=== PATIENT | female | born 1985 | race Caucasian/White ===

== ENCOUNTER → 2021-08-02 | Outpatient (CLI) | payer OTHER | LOC: WSo 13:58 | PROVIDERS: ATTEND Obstetrics & Gynecology | DX: Z53.9 Procedure and treatment not carried out, unspecified reason (principal) ==

== ENCOUNTER 2022-09-25 21:53 | Outpatient (CLI) | payer MEDICAID ==
[~2022-09-25] VITALS: Ht 154.9 cm; Wt 61.0 kg
[2022-09-25 22:05] VITALS: BP 115/71
[2022-09-25] MEDS ORDERED: PREN1TAB79 PO (22:29)
[2022-09-25] MEDS ORDERED: ASCO500T71 PO (22:29)
[2022-09-25] MEDS ORDERED: FAMO40TA6 PO (22:29)
--- NOTE | 2022-09-26 08:11 | Physician Query-Final Dx ---
RENEE,09/26/22 0811: Clinic Account Progress/Dx Physician Query: Please give diagnosis Please include # weeks gestation Date of Service Sep 25, 2022 at 21:53 RENNY LUONG DO 09/27/22 0836: Clinic Account Progress/Dx DIAGNOSIS: Diagnosis 23 week GA decreased movement with reasurring FHT ,JulSep 26, 2022 08:11 RENNY LUONG DO Sep 27, 2022 08:36
== END 2022-09-26 00:43 | disposition home or self-care (01) ==
LOC: WSo 21:53 → LDRP 21:53 → WS 09-26 00:42 → WSo 09-26 00:43
PROVIDERS: ATTEND Family Medicine
DX: O36.8120 Decreased fetal movements, second trimester, not applicable or unspecified (principal); Z3A.23 23 weeks gestation of pregnancy
CPT/HCPCS: 99212

== ENCOUNTER 2023-01-08 19:55 | Outpatient (CLI) | payer MEDICAID ==
[~2023-01-08] VITALS: Ht 154.9 cm; Wt 66.0 kg
[~2023-01-08 19:55] MED LIST: ASCO500T71 PO; FAMO40TA6 PO; PREN1TAB79 PO
[2023-01-08 20:15] VITALS: BP 129/79
[2023-01-08 20:23] LABS: BILIRUBIN,URINE NEGATIVE (NEGATIVE); CLARITY,URINE CLEAR; COLOR,URINE YELLOW; GLUCOSE, URINE (UA) NEGATIVE (NEGATIVE); KETONES,URINE NEGATIVE (NEGATIVE); LEUKOCYTE ESTERASE ,URINE NEGATIVE (NEGATIVE); NITRITE,URINE NEGATIVE (NEGATIVE); PROTEIN,URINE NEGATIVE (NEGATIVE)
[2023-01-08 20:45] LABS: BACTERIA,URINE NEGATIVE /HPF
[2023-01-08 20:50] VITALS: BP 114/72
--- NOTE | 2023-01-09 08:31 | Physician Query-Final Dx ---
,01/09/23 0831: Clinic Account Progress/Dx Physician Query: Please give diagnosis Please include # weeks gestation Date of Service Jan 08, 2023 at 19:55 MINISTERIO DAVIDSON MD 01/25/23 2140: Clinic Account Progress/Dx DIAGNOSIS: Diagnosis 1. Intrauterine in third trimester nonlabor 2. Pelvic pressurereassuring RENEE,JulJan 09, 2023 08:31 MINISTERIO DAVIDSON MD Jan 25, 2023 21:40
[2023-01-22] MEDS ORDERED: DOCU100C37 PO (07:47)
[2023-01-22] MEDS ORDERED: FERR325T24 PO (07:47)
[2023-01-22] MEDS ORDERED: IBUP-844 PO (07:47)
== END 2023-01-08 21:23 | disposition home or self-care (01) ==
LOC: WSo 19:55 → LDRP 19:56 → WSo 21:23
PROVIDERS: ATTEND Family Medicine
DX: O62.9 Abnormality of forces of labor, unspecified (principal); Z3A.38 38 weeks gestation of pregnancy
CPT/HCPCS: 81000; 99213

== ENCOUNTER 2023-01-19 18:27 | Inpatient (IN) | payer MEDICAID ==
[~2023-01-19] VITALS: Ht 154.9 cm; Wt 66.9 kg
[2023-01-19 19:00] VITALS: BP 118/79
[2023-01-19] MEDS ORDERED: AMPICILLIN FOR IV USE 2,000 MG in NS (IVPB) 50 ML IV SCH (19:41)
[2023-01-19 19:45] VITALS: BP 118/79
[2023-01-19] MEDS ORDERED: MINERAL OIL 30 ML UDC TOP PRN (19:45)
[2023-01-19 20:06] LABS: BILIRUBIN,URINE NEGATIVE (NEGATIVE); CLARITY,URINE CLEAR; COLOR,URINE YELLOW; GLUCOSE, URINE (UA) NEGATIVE (NEGATIVE); KETONES,URINE NEGATIVE (NEGATIVE); LEUKOCYTE ESTERASE ,URINE NEGATIVE (NEGATIVE); NITRITE,URINE NEGATIVE (NEGATIVE); PH,URINE 6.5 (5-9); PROTEIN,URINE NEGATIVE (NEGATIVE)
[2023-01-19 20:21] LABS: BASOPHILS % (AUTO) 0 % (0-10); EOSINOPHILS # (AUTO) 0.1 10^3/uL (0.0-0.3); EOSINOPHILS % (AUTO) 2 % (0-10); HEMATOCRIT 36 % (35-52); HEMOGLOBIN 12.5 g/dL (11.5-16.0); LYMPHOCYTES # (AUTO) 2.3 10^3/uL (1.0-4.0); LYMPHOCYTES % (AUTO) 31 % (12-44); MEAN CORPUSCULAR HEMOGLOBIN 32 pg (25-34); MEAN CORPUSCULAR HGB CONC 35 g/dL (32-36); MEAN CORPUSCULAR VOLUME 89 fL (80-99); MEAN PLATELET VOLUME 11.1 fL (9.0-12.2); MONOCYTES # (AUTO) 0.6 10^3/uL (0.0-1.0); MONOCYTES % (AUTO) 8 % (0-12); NEUTROPHILS # (AUTO) 4.4 10^3/uL (1.8-7.8); NEUTROPHILS % (AUTO) 59 % (42-75); PLATELET COUNT 172 10^3/uL (130-400); WHITE BLOOD COUNT 7.5 10^3/uL (4.3-11.0)
[2023-01-19 20:29] LABS: BACTERIA,URINE NEGATIVE /HPF
[2023-01-19] MEDS: LACTATED RINGERS 1,000 ML IV SCH (20:38)
[2023-01-19] MEDS: D5 LR IV SOLUTION 1,000 ML IV SCH (20:38)
[2023-01-19] MEDS ORDERED: CATHETER FLUSH 10 ML SYR IV SCH (22:00)
[2023-01-19 23:30] VITALS: BP 119/78
[2023-01-20] VITALS (54 sets, daily range): BP systolic 98–141; BP diastolic 55–86
[2023-01-20] MEDS: AMPICILLIN FOR IV USE 1,000 MG in NS (IVPB) 50 ML IV SCH ×5 (00:54→16:37)
[2023-01-20] MEDS ORDERED: ACETAMINOPHEN 500 MG TAB (TYLENOL) ONE ×2 (02:30→20:58)
[2023-01-20] MEDS ORDERED: ACETAMINOPHEN 500 MG TAB (TYLENOL) PO ONE (02:32)
[2023-01-20] MEDS: D5 LR IV SOLUTION 1,000 ML IV SCH ×2 (06:53→15:58)
[2023-01-20] MEDS ORDERED: fentaNYL 2 mcg/ml BUPIVA 0.125 100 ML ONE (08:15)
[2023-01-20] MEDS: LACTATED RINGERS 1,000 ML IV SCH (08:20)
[2023-01-20] MEDS ORDERED: ONDANSETRON 4 MG/2 ML (SDV) Z0FRAN ONE (08:21)
[2023-01-20] MEDS ORDERED: ONDANSETRON 4 MG/2 ML (SDV) Z0FRAN IVP PRN (08:30)
[2023-01-20] MEDS ORDERED: fentaNYL INJ 100 MCG/2 ML AMP ONE (08:45)
[2023-01-20] MEDS ORDERED: BUPIVACAINE 0.25% 10 ML (SENSORCAINE) VIAL ONE (08:45)
[2023-01-20] MEDS: fentaNYL 2 mcg/ml BUPIVA 0.125 100 ML EPI SCH ×2 (09:12→16:37)
[2023-01-20] MEDS ORDERED: LACTATED RINGERS 1,000 ML IV SCH (09:30)
[2023-01-20] MEDS ORDERED: diphenhydrAMINE 50 MG/ML INJ (BENADRYL) IV PRN (09:30)
[2023-01-20] MEDS ORDERED: ONDANSETRON 4 MG/2 ML (SDV) Z0FRAN IV PRN (09:30)
[2023-01-20] MEDS ORDERED: NALOXONE 0.4 MG/ML 1 ML (NARCAN) VIAL IV PRN (09:30)
[2023-01-20] MEDS ORDERED: OXYTOCIN PRE-MIX DRIP 500 ML IV SCH (10:15)
--- NOTE | 2023-01-20 13:19 | History & Physical-OB ---
OB - Chief Complaint & HPI Date/Time Date of Admission: Date of Admission: Jan 19, 2023 at 18:27 Date seen by a Provider: Jan 20, 2023 Time Seen by a Provider: 08:00 Chief Complaint/History OB-Reason for Admission/Chief: Induction of Labor Hx : 1 Hx Para: 0 Expected Date of Delivery: Jan 19, 2023 Gestational Age in Weeks: 40 Gestational Age in Days: 1 History of Labs A+, Ab neg, Rub Imm HIV/RPR/HepB/C NR Normal 1 hr GTT GBS + Allergies and Home Medications Allergies Coded Allergies: No Known Drug Allergies (Unverified , 01/08/23) Patient Home Medication List Home Medication List Reviewed: Yes Ascorbic Acid (Vitamin C) Unknown Strength Tab.chew, Unknown Dose PO, (Reported) Entered as Reported by: KAM SAMS on 09/25/222228 Famotidine (Famotidine) 40 Mg Tablet, 40 MG PO DAILY, (Reported) Entered as Reported by: KAM SAMS on 09/25/222228 Vit W-Ca,Fe,FA(<1 mg) ( Vitamins) 27 Mg Iron-800 Mcg Tablet, 1 EACH PO DAILY, (Reported) Entered as Reported by: KAM SAMS on 09/25/222228 OB - History Hx of Present Care: Yes Ultrasounds: Normal mid trimester US Obstetrical Complications: None Medical Complications: None, Other (IVF) Obstetrical History Hx : 1 Patient Past Medical History None Social History/Family History Alcohol Use: Denies Use Smoking Cessation: Never smoker 2nd Hand Smoke Exposure: No Immunizations Influenza Vaccine Up-to-Date: No; Not Current Rubella: immune RPR/VDRL: Negative GBS Status: Positive HBsAG: Negative OB - Admission Exam Physical Exam Vitals: Vital Signs 01/20/23 01/20/23 10:00 11:00 Temp 36.1 Pulse 59 Resp 18 B/P (MAP) 101/65 (77) Pulse Ox 93 O2 Delivery Room Air HEENT: NCAT Heart: Rhythm Normal Lungs: Clear Abdomen: Gravid Extremities: Normal Reflexes: Normal Cervical Dilatation: 2cm Effacement: 50% Station: -2 Membranes: Intact Heart Rate: 150's Accelerations: Accelerations Present Decelerations: No Decelerations Short Term Variability: Present Fci Variability: Average (6-25) Contractions on Admission: < 5 Minutes Apart Intensity: Moderate Miller Scoring Tool (Modified) Dilation (cm): 1-2cm (1) Effacement (%): 51-79% (2) Descent/Station: -2 (1) Cervix Consistency: Medium(1) Cervix Position: Middle/Mid-Position (1) Subtract 1 point for: Nulliparity (-1) Labs Laboratory Tests Test 01/19/23 18:50 01/19/23 20:00 Range/Units Urine Color YELLOW Urine Clarity CLEAR Urine pH 6.5 5-9 Urine Specific [place] 1.015 L 1.016-1.022 Urine Protein NEGATIVE NEGATIVE Urine Glucose (UA) NEGATIVE NEGATIVE Urine Ketones NEGATIVE NEGATIVE Urine Nitrite NEGATIVE NEGATIVE Urine Bilirubin NEGATIVE NEGATIVE Urine Urobilinogen 0.2 < = 1.0 MG/DL Urine Leukocyte Esterase NEGATIVE NEGATIVE Urine RBC (Auto) NEGATIVE NEGATIVE Urine RBC NONE /HPF Urine WBC NONE /HPF Urine Crystals NONE /LPF Urine Bacteria NEGATIVE /HPF Urine Casts NONE /LPF Urine Mucus NEGATIVE /LPF Urine Culture Indicated NO White Blood Count 7.5 4.3-11.0 10^3/uL Red Blood Count 3.97 3.80-5.11 10^6/uL Hemoglobin 12.5 11.5-16.0 g/dL Hematocrit 36 35-52 % Mean Corpuscular Volume 89 80-99 fL Mean Corpuscular Hemoglobin 32 25-34 pg Mean Corpuscular Hemoglobin Concent 35 32-36 g/dL Red Cell Distribution Width 12.3 10.0-14.5 % Platelet Count 172 130-400 10^3/uL Mean Platelet Volume 11.1 9.0-12.2 fL Immature Granulocyte % (Auto) 1 % Neutrophils (%) (Auto) 59 42-75 % Lymphocytes (%) (Auto) 31 12-44 % Monocytes (%) (Auto) 8 0-12 % Eosinophils (%) (Auto) 2 0-10 % Basophils (%) (Auto) 0 0-10 % Neutrophils # (Auto) 4.4 1.8-7.8 10^3/uL Lymphocytes # (Auto) 2.3 1.0-4.0 10^3/uL Monocytes # (Auto) 0.6 0.0-1.0 10^3/uL Eosinophils # (Auto) 0.1 0.0-0.3 10^3/uL Basophils # (Auto) 0.0 0.0-0.1 10^3/uL Immature Granulocyte # (Auto) 0.1 0.0-0.1 10^3/uL Syphilis Total Antibody Negative Negative OB - Assessment/Plan/Diagnosis Assessment Assessment: group B positive strep, induction of labor Admission Dx Third Trimester 40 week gestation Oligohydramnio GBS + Admission Status: Inpatient Order (span 2 midnights) Reason for Inpatient Admission: Labor and immediate post care Plan Other Plan 38 yo G1 @ 40.1 wga here for IOL for Oligohydramnios Plan - Cytotec protocol overnight - AROM this AM 0800 Clear - GBS +, continue ampicillin ppx - May augment with pitocin - Expect Vaginal delivery BACILIO BACON MD Jan 20, 2023 13:19
--- NOTE | 2023-01-20 13:34 | Labor Progress Note ---
Labor Progress Note Labor Progress Note Date Seen by Provider: Jan 20, 2023 Time Seen by Provider: 12:30 Subjective: Pt denies complaints. Doing well. Epidural in place and pain well controlled. Having some nausea and reflux Objective: /- Clear fluid Assessment/Plan: Annalise Trejo is a (38 /Para 1 / 0,Gestational Age (wks)40.1 here for IOL for Oligohydramnios CEFM/TOCO Continue pitocin augmentation of labor Anesthesia: Epidural in place Anticipate vaginal delivery. GBS +, continue ampicillin Vitals - Labs Vital Signs - I&O Vital Signs Date Time Temp Pulse Resp B/P (MAP) Pulse Ox O2 Delivery O2 Flow Rate FiO2 01/20/23 11:00 59 18 101/65 (77) 93 Room Air 01/20/23 10:45 61 18 115/68 (84) 93 Room Air 01/20/23 10:30 50 18 94 Room Air 01/20/23 10:15 53 18 103/66 (78) 94 Room Air 01/20/23 10:00 36.1 53 18 98/64 (75) 94 Room Air 01/20/23 09:55 54 18 110/68 (82) 92 Room Air 01/20/23 09:50 48 18 118/73 (88) 93 Room Air 01/20/23 09:45 48 18 118/73 (88) 92 Room Air 01/20/23 09:40 53 18 119/74 (89) 93 Room Air 01/20/23 09:35 59 18 104/69 (81) 93 Room Air 01/20/23 09:30 57 18 105/68 (80) 92 Room Air 01/20/23 09:25 56 18 102/62 (75) 98 Room Air 01/20/23 09:20 58 18 111/68 (82) 98 Room Air 01/20/23 09:15 60 18 113/76 (88) 100 Room Air 01/20/23 09:10 62 18 128/78 (95) 95 Room Air 01/20/23 09:05 67 18 131/74 (93) 98 Room Air 01/20/23 09:00 63 18 127/84 (98) 100 Room Air 01/20/23 08:50 65 18 141/76 (97) 100 Room Air 01/20/23 08:30 18 Room Air 01/20/23 08:00 18 Room Air 01/20/23 07:30 36.1 58 18 111/64 (80) Room Air 01/20/23 04:30 36.2 58 16 126/68 (87) Room Air 01/19/23 23:30 36.4 78 16 119/78 (92) 01/19/23 19:45 36.6 86 18 98 Room Air 01/19/23 19:00 36.6 86 18 118/79 (92) 98 Room Air I & O 01/20/23 07:00 Intake Total 1150 ml Balance 1150 ml Labs Laboratory Tests 01/19/23 18:50: Urine Color YELLOW, Urine Clarity CLEAR, Urine pH 6.5, Urine Specific [place] 1.015L, Urine Protein NEGATIVE, Urine Glucose (UA) NEGATIVE, Urine Ketones NEGATIVE, Urine Nitrite NEGATIVE, Urine Bilirubin NEGATIVE, Urine Urobilinogen 0.2, Urine Leukocyte Esterase NEGATIVE, Urine RBC (Auto) NEGATIVE, Urine RBC NONE, Urine WBC NONE, Urine Crystals NONE, Urine Bacteria NEGATIVE, Urine Casts NONE, Urine Mucus NEGATIVE, Urine Culture Indicated NO 01/19/23 20:00: White Blood Count 7.5, Red Blood Count 3.97, Hemoglobin 12.5, Hematocrit 36, Mean Corpuscular Volume 89, Mean Corpuscular Hemoglobin 32, Mean Corpuscular Hemoglobin Concent 35, Red Cell Distribution Width 12.3, Platelet Count 172, Mean Platelet Volume 11.1, Immature Granulocyte % (Auto) 1, Neutrophils (%) (Auto) 59, Lymphocytes (%) (Auto) 31, Monocytes (%) (Auto) 8, Eosinophils (%) (Auto) 2, Basophils (%) (Auto) 0, Neutrophils # (Auto) 4.4, Lymphocytes # (Auto) 2.3, Monocytes # (Auto) 0.6, Eosinophils # (Auto) 0.1, Basophils # (Auto) 0.0, Immature Granulocyte # (Auto) 0.1, Syphilis Total Antibody Negative BACILIO BACON MD Jan 20, 2023 13:34
[2023-01-20] MEDS ORDERED: PANTOPRAZOLE 40 MG (PROTONIX) VIAL IV SCH (14:00)
[2023-01-20] MEDS ORDERED: LIDOCAINE/EPI 2% 1:200,00 (XYLOCAINE) 20 ML VIAL ONE (17:23)
[2023-01-20] MEDS: OXYTOCIN PRE-MIX DRIP 500 ML IV SCH ×2 (19:36→20:17)
[2023-01-20] MEDS ORDERED: METHYLERGONOVINE 0.2 MG/ML (METHERGINE) AMP ONE (19:39)
[2023-01-20] MEDS ORDERED: METHYLERGONOVINE 0.2 MG/ML (METHERGINE) AMP IM ONE (19:45)
[2023-01-20] MEDS ORDERED: WITCH HAZEL(TUCKS) 40 EA JAR TOP PRN (20:15)
[2023-01-20] MEDS ORDERED: BENZOCAINE/MENTHOL (DERMOPLAST) 56 ML CAN TP PRN (20:15)
--- NOTE | 2023-01-20 20:18 | OB Labor & Delivery Record ---
Vag Delivery Note Vag Delivery Note Date of Delivery: 01/20/23 Preoperative Diagnosis: Annalise Trejo is a (38 /Para 1 / 0,Gestational Age (wks)40.1 here for IOL for Oligohydramnios Postoperative Diagnosis: Same Surgeon: BACILIO BACON MD Culinary Arts Instructor: none Anesthesia: Epidural Delivery Type: Vacuum assisted vaginal delivery @ 193 Findings: Viable female infant, apgars 8/9, weight 7#12, 3515 grams Lacerations: 3rd degree perineal laceration Intact placenta with 3 vessel cord. Nuchal cord x1 reduced at delivery of head, No body cord or shoulder dystocia Estimated Blood Loss: 300 ml Complications: None Condition: Stable Description of Procedure: The patient is a 38 year old female who presented for IOL for oligohydramnios. She was admitted and informed consent was obtained. Her labor course was remarkable for pitocin augmentation and vacuum assisted vagainal delivery. She progressed to complete dilatation and began to push. After pushing for 2 hrs mot her was exhausted and Vacuum assist was discussed, risks and benefits were discussed in the labor room and mother and father where in agreement for trial of vacuum assisted vaginal delivery. MightVac was chose and placed in the correct location on head making sure it was not over the fontenelle and did not have any maternal tissue. Suction was then applied with in the green @ 1922 and 1 pop off occured. It was then placed again at the next push @ 192 and baby moved station to [facility]. Vacuum was then removed. The 's head was delivered atraumatically in the CHERYLE position @ 1931. Nuchal cord x 1 was reduced at the perinium. The shoulders and remainder of the 's body were then delivered without difficulty. Upon delivery, the was vigorous and placed on maternal chest and the mouth and nares were bulb suctioned by nursery nurse. After a 3 min delay cord was doubly clamped and cut by FOB and the remained on maternal chest. An intact placenta with 3-vessel cord delivered via Lam and there was found to be minimal bleeding.~ Vigorous fundal massage was performed and the fundus was found to be firm. IV oxytocin was given. Examination of the vagina and perineum revealed a 3rd degree laceration repaired in the usual fashion with 3-0 vicryl rapide suture. Following the repair, sponge, instrument and needle counts were correct. Mom and baby were both in stable condition in the labor suite. Vitals - Labs Vital Signs - I&O Vital Signs Date Time Temp Pulse Resp B/P (MAP) Pulse Ox O2 Delivery O2 Flow Rate FiO2 01/20/23 19:43 87 18 138/70 (92) Room Air 01/20/23 19:02 47 18 130/76 (94) 96 Room Air 01/20/23 18:43 47 18 122/66 (84) 96 Room Air 01/20/23 18:29 67 18 117/68 (84) 96 Room Air 01/20/23 14:15 57 18 110/86 (94) 94 Room Air 01/20/23 14:00 58 18 119/77 (91) 94 Room Air 01/20/23 13:45 59 18 110/78 (89) 94 Room Air 01/20/23 13:30 57 18 113/79 (90) 94 Room Air 01/20/23 13:15 36.3 66 18 111/71 (84) 93 Room Air 01/20/23 13:00 36.3 53 18 113/67 (82) 93 Room Air 01/20/23 12:45 54 18 112/68 (83) 93 Room Air 01/20/23 12:30 54 18 115/67 (83) 92 Room Air 01/20/23 12:15 53 18 111/72 (85) 93 Room Air 01/20/23 12:00 53 18 107/68 (81) 93 Room Air 01/20/23 11:45 57 18 109/65 (80) 93 Room Air 01/20/23 11:30 52 18 116/71 (86) 94 Room Air 01/20/23 11:15 54 18 98/68 (78) 94 Room Air 01/20/23 11:00 59 18 101/65 (77) 93 Room Air 01/20/23 10:45 61 18 115/68 (84) 93 Room Air 01/20/23 10:30 50 18 94 Room Air 01/20/23 10:15 53 18 103/66 (78) 94 Room Air 01/20/23 10:00 36.1 53 18 98/64 (75) 94 Room Air 01/20/23 09:55 54 18 110/68 (82) 92 Room Air 01/20/23 09:50 48 18 118/73 (88) 93 Room Air 01/20/23 09:45 48 18 118/73 (88) 92 Room Air 01/20/23 09:40 53 18 119/74 (89) 93 Room Air 01/20/23 09:35 59 18 104/69 (81) 93 Room Air 01/20/23 09:30 57 18 105/68 (80) 92 Room Air 01/20/23 09:25 56 18 102/62 (75) 98 Room Air 01/20/23 09:20 58 18 111/68 (82) 98 Room Air 01/20/23 09:15 60 18 113/76 (88) 100 Room Air 01/20/23 09:10 62 18 128/78 (95) 95 Room Air 01/20/23 09:05 67 18 131/74 (93) 98 Room Air 01/20/23 09:00 63 18 127/84 (98) 100 Room Air 01/20/23 08:50 65 18 141/76 (97) 100 Room Air 01/20/23 08:30 18 Room Air 01/20/23 08:00 18 Room Air 01/20/23 07:30 36.1 58 18 111/64 (80) Room Air 01/20/23 04:30 36.2 58 16 126/68 (87) Room Air 01/19/23 23:30 36.4 78 16 119/78 (92) I & O 01/20/23 07:00 Intake Total 1150 ml Balance 1150 ml BACILIO BACON MD Jan 20, 2023 20:18
[2023-01-20] MEDS ORDERED: LIDOCAINE/EPI 2% 1:200,00 (XYLOCAINE) 10 ML VIAL INJ ONE (20:30)
[2023-01-20] MEDS ORDERED: IBUPROFEN 600 MG (MOTRIN) TAB PO ONE (20:58)
[2023-01-20] MEDS: DOCUSATE SODIUM 100 MG (COLACE) CAP PO SCH (21:00)
[2023-01-20] MEDS: ACETAMINOPHEN 500 MG TAB (TYLENOL) PO SCH (21:00)
[2023-01-20] MEDS: IBUPROFEN 600 MG (MOTRIN) TAB PO SCH (21:00)
[2023-01-20] MEDS ORDERED: CATHETER FLUSH 10 ML SYR IV SCH (22:00)
[2023-01-21 02:51] VITALS: BP 101/53
[2023-01-21] MEDS: IBUPROFEN 600 MG (MOTRIN) TAB PO SCH ×4 (02:52→20:53)
[2023-01-21] MEDS: ACETAMINOPHEN 500 MG TAB (TYLENOL) PO SCH ×4 (02:53→20:15)
[2023-01-21 06:09] LABS: BASOPHILS % (AUTO) 0 % (0-10); EOSINOPHILS # (AUTO) 0.1 10^3/uL (0.0-0.3); EOSINOPHILS % (AUTO) 1 % (0-10); HEMATOCRIT 29 % (35-52); HEMOGLOBIN 9.9 g/dL (11.5-16.0); LYMPHOCYTES # (AUTO) 2.4 10^3/uL (1.0-4.0); LYMPHOCYTES % (AUTO) 16 % (12-44); MEAN CORPUSCULAR HEMOGLOBIN 32 pg (25-34); MEAN CORPUSCULAR HGB CONC 35 g/dL (32-36); MEAN CORPUSCULAR VOLUME 91 fL (80-99); MEAN PLATELET VOLUME 11.7 fL (9.0-12.2); MONOCYTES # (AUTO) 0.7 10^3/uL (0.0-1.0); MONOCYTES % (AUTO) 5 % (0-12); NEUTROPHILS # (AUTO) 11.9 10^3/uL (1.8-7.8); NEUTROPHILS % (AUTO) 78 % (42-75); PLATELET COUNT 138 10^3/uL (130-400); WHITE BLOOD COUNT 15.2 10^3/uL (4.3-11.0)
--- NOTE | 2023-01-21 09:10 | Postpartum Progress Note ---
Note Note Day # 1 Subjective: Patient is without complaints. Ambulating, voiding. Tolerating a regular diet without nausea or vomiting. Normal lochia. Pain is well controlled with oral pain medications. Breast feeding. Objective: Vital Signs 01/21/23 09:15 Temp 36.2 Pulse 64 Resp 16 B/P (MAP) 116/77 (90) Pulse Ox 98 O2 Delivery Room Air Physical Exam: General - Alert and oriented, no apparent distress Lungs- CTAB Heart- RRR, no murmur Extremities - 1+ non pitting edema bilaterally Assessment: post- day # 1, status post vacuum assisted vaginal delivery. Recovering well, hemodynamically stable Plan: Routine care. Encourage breast feeding. Encourage ambulation. Ferrous sulfate supplementation. Plan for discharge tomorrow Vitals - Labs Vital Signs - I&O Vital Signs Date Time Temp Pulse Resp B/P (MAP) Pulse Ox O2 Delivery O2 Flow Rate FiO2 01/21/23 02:51 36.4 59 16 101/53 (69) 96 Room Air 01/20/23 23:23 36.6 61 16 106/57 (73) 96 Room Air 01/20/23 21:28 94 18 110/70 (83) Room Air 01/20/23 21:13 78 18 118/56 (76) Room Air 01/20/23 20:53 71 18 112/68 (83) Room Air 01/20/23 20:14 37.3 78 18 115/55 (75) Room Air 01/20/23 19:43 87 18 138/70 (92) Room Air 01/20/23 19:02 47 18 130/76 (94) 96 Room Air 01/20/23 18:43 47 18 122/66 (84) 96 Room Air 01/20/23 18:29 67 18 117/68 (84) 96 Room Air 01/20/23 16:00 63 18 120/74 (89) 95 Room Air 01/20/23 15:54 36.9 01/20/23 15:45 57 18 112/68 (83) 96 Room Air 01/20/23 15:30 58 18 110/67 (81) 96 Room Air 01/20/23 15:15 62 18 107/66 (80) 96 Room Air 01/20/23 15:00 68 18 117/78 (91) 94 Room Air 01/20/23 14:45 76 18 115/84 (94) 94 Room Air 01/20/23 14:30 64 18 103/74 (84) 94 Room Air 01/20/23 14:15 57 18 110/86 (94) 94 Room Air 01/20/23 14:00 58 18 119/77 (91) 94 Room Air 01/20/23 13:45 59 18 110/78 (89) 94 Room Air 01/20/23 13:30 57 18 113/79 (90) 94 Room Air 01/20/23 13:15 36.3 66 18 111/71 (84) 93 Room Air 01/20/23 13:00 36.3 53 18 113/67 (82) 93 Room Air 01/20/23 12:45 54 18 112/68 (83) 93 Room Air 01/20/23 12:30 54 18 115/67 (83) 92 Room Air 01/20/23 12:15 53 18 111/72 (85) 93 Room Air 01/20/23 12:00 53 18 107/68 (81) 93 Room Air 01/20/23 11:45 57 18 109/65 (80) 93 Room Air 01/20/23 11:30 52 18 116/71 (86) 94 Room Air 01/20/23 11:15 54 18 98/68 (78) 94 Room Air 01/20/23 11:00 59 18 101/65 (77) 93 Room Air 01/20/23 10:45 61 18 115/68 (84) 93 Room Air 01/20/23 10:30 50 18 94 Room Air 01/20/23 10:15 53 18 103/66 (78) 94 Room Air 01/20/23 10:00 36.1 53 18 98/64 (75) 94 Room Air 01/20/23 09:55 54 18 110/68 (82) 92 Room Air 01/20/23 09:50 48 18 118/73 (88) 93 Room Air 01/20/23 09:45 48 18 118/73 (88) 92 Room Air 01/20/23 09:40 53 18 119/74 (89) 93 Room Air 01/20/23 09:35 59 18 104/69 (81) 93 Room Air 01/20/23 09:30 57 18 105/68 (80) 92 Room Air 01/20/23 09:25 56 18 102/62 (75) 98 Room Air 01/20/23 09:20 58 18 111/68 (82) 98 Room Air 01/20/23 09:15 60 18 113/76 (88) 100 Room Air I & O 01/21/23 07:00 Intake Total 3150 ml Balance 3150 ml Labs Laboratory Tests 01/21/23 05:22: White Blood Count 15.2H, Red Blood Count 3.12L, Hemoglobin 9.9#L, Hematocrit 29L , Mean Corpuscular Volume 91, Mean Corpuscular Hemoglobin 32, Mean Corpuscular Hemoglobin Concent 35, Red Cell Distribution Width 12.5, Platelet Count 138, Mean Platelet Volume 11.7, Immature Granulocyte % (Auto) 1, Neutrophils (%) (Auto) 78H, Lymphocytes (%) (Auto) 16, Monocytes (%) (Auto) 5, Eosinophils (%) (Auto) 1, Basophils (%) (Auto) 0, Neutrophils # (Auto) 11.9H, Lymphocytes # (Auto) 2.4, Monocytes # (Auto) 0.7, Eosinophils # (Auto) 0.1, Basophils # (Auto) 0.0, Immature Granulocyte # (Auto) 0.1 FRANKY GALLARDO MD Jan 21, 2023 09:10
[2023-01-21 09:15] VITALS: BP 116/77
[2023-01-21] MEDS: FERROUS SULF 325 MG (IRON) TAB PO SCH (09:19)
[2023-01-21] MEDS: PRENATAL VITAMIN 1 EA TAB PO SCH (09:20)
[2023-01-21] MEDS: DOCUSATE SODIUM 100 MG (COLACE) CAP PO SCH ×2 (09:20→20:52)
--- NOTE | 2023-01-21 17:27 | Anesthesia-Regional Post-Op ---
Regional Patient Condition Mental Status: Alert, Oriented x3 Circulation: Same as Pre-Op Headache: Absent Sensation: Full Recovery Motor Block: Absent Post Op Complications Complications None Follow Up Care/Instructions Patient Instructions None needed. Anesthesia/Patient Condition Patient is doing well, no complaints, stable vital signs, no apparent adverse anesthesia problems. No complications reported per nursing. GONZÁLEZ AMARAL CRNA Jan 21, 2023 17:27
[2023-01-21 20:47] VITALS: BP 114/69
[2023-01-22] MEDS: IBUPROFEN 600 MG (MOTRIN) TAB PO SCH ×2 (03:00→08:42)
[2023-01-22 03:04] VITALS: BP 107/64
[2023-01-22] MEDS: ACETAMINOPHEN 500 MG TAB (TYLENOL) PO SCH ×2 (03:06→08:42)
[2023-01-22] MEDS ORDERED: IBUP-844 PO (07:47)
[2023-01-22] MEDS ORDERED: FERR325T24 PO (07:47)
[2023-01-22] MEDS ORDERED: DOCU100C37 PO (07:47)
[2023-01-22 08:36] VITALS: BP 134/69
[2023-01-22] MEDS: PRENATAL VITAMIN 1 EA TAB PO SCH (08:42)
[2023-01-22] MEDS: DOCUSATE SODIUM 100 MG (COLACE) CAP PO SCH (08:42)
[2023-01-22] MEDS: FERROUS SULF 325 MG (IRON) TAB PO SCH (08:42)
--- NOTE | 2023-01-22 08:53 | Discharge Summary ---
Discharge Summary Hospital Course Hospital Course Date of Admission: Jan 19, 2023 at 18:27 Admission Diagnosis : Induction of labor Term intrauterine at 40 weeks gestation Oligohydramnios affecting in third trimester Family Physician/Provider: Tali Frankel MD Date of Discharge: 01/22/23 Discharge Diagnosis: s/p vacuum assisted vaginal delivery third degree perineal laceration repair asymptomatic acute blood loss anemia mother Hospital Course: 38 yo G1 at 40w1d admitted for IOL for oligohydramnios, had vacuum assisted vaginal delivery with third degree laceration repair, uncomplicated course. Labs and Pending Lab Test: Home Meds Active Ferosul (Ferrous Sulfate) 325 Mg (65 Mg Iron) Tablet 325 Mg PO DAILY Docusate Sodium 100 Mg Capsule 100 Mg PO BID Ibu (Ibuprofen) 600 Mg Tablet 600 Mg PO Q6H PRN Reported Vitamin C (Ascorbic Acid) Unknown Strength Tab.chew Unknown Dose PO Vitamins ( Vit W-Ca,Fe,FA(<1 mg)) 27 Mg Iron-800 Mcg Tablet 1 Each PO DAILY Assessment/Pt DC Instructions Follow up with Dr. Frankel in 6 weeks for visit Discharge Diet: No Restrictions Activity as Tolerated: Yes (avoid strenuous activity x 6 weeks, nothing in vagina for 6 weeks) Discharge Physical Examination Allergies: Coded Allergies: No Known Drug Allergies (Unverified , 01/08/23) General Appearance: No Apparent Distress Respiratory: Lungs Clear, Normal Breath Sounds Cardiovascular: Regular Rate, Rhythm, No Murmur Skin: Normal Color Neurologic/Psychiatric: Alert, Normal Mood/Affect FRANKY GALLARDO MD Jan 22, 2023 08:53
== END 2023-01-22 09:30 | disposition home or self-care (01) | DRG 768 ==
LOC: LDRP 18:27
PROVIDERS: ADMIT Family Medicine; ATTEND Family Medicine
PROC: 10D07Z6 Extraction of Products of Conception, Vacuum, Via Natural or Artificial Opening (ICD-10-PCS; principal; 2023-01-20)
PROC: 0DQR0ZZ Repair Anal Sphincter, Open Approach (ICD-10-PCS; 2023-01-20)
PROC: 10907ZC Drainage of Amniotic Fluid, Therapeutic from Products of Conception, Via Natural or Artificial Opening (ICD-10-PCS; 2023-01-20)
DX: O41.03X0 Oligohydramnios, third trimester, not applicable or unspecified (principal); Z37.0 Single live birth; D62 Acute posthemorrhagic anemia; O70.20 Third degree perineal laceration during delivery, unspecified; O99.824 Streptococcus B carrier state complicating childbirth; Z3A.40 40 weeks gestation of pregnancy; O90.81 Anemia of the puerperium
CPT/HCPCS: 36415; 81000; 85025; 86780; 86850; 86900; 86901